=== PATIENT | female | born 1945 | race Caucasian/White ===

== ENCOUNTER 2025-04-03 11:14 | Outpatient (CLI) | payer MEDICARE, SELFPAY | END 2025-04-03 11:15 | disposition home or self-care (01) | PROVIDERS: PCP Family Medicine; Visit Provider Nurse Practitioner Family | DX: I10 Essential (primary) hypertension (principal); E78.5 Hyperlipidemia, unspecified; E03.9 Hypothyroidism, unspecified; Z13.0 Encounter for screening for diseases of the blood and blood-forming organs and certain disorders involving the immune mechanism | CPT/HCPCS: 80053; 80061; 84443; 85025 ==